=== PATIENT | male | born 1995 | race Caucasian/White ===

== ENCOUNTER 2018-04-26 18:44 | Emergency (ER) | payer OTHER ==
[~2018-04-26] VITALS: Ht 180.3 cm; Wt 70.5 kg
[2018-04-26 18:48] VITALS: BP 138/78; TEMP 98.8
[2018-04-26] MEDS ORDERED: PROVIGIL 100MG100 MG PO (19:16)
[2018-04-26 20:04] VITALS: PULSE 81
== END 2018-04-26 20:04 | disposition home or self-care (01) ==
LOC: COL.ER 18:44
DX: S05.12XA Contusion of eyeball and orbital tissues, left eye, initial encounter (principal); H11.32 Conjunctival hemorrhage, left eye; Y04.8XXA Assault by other bodily force, initial encounter